=== PATIENT | female | born 1935 | race Caucasian/White ===

== ENCOUNTER 2023-06-20 10:20 | Day surgery (SDC) | payer OTHER, BC ==
[2023-06-20 10:34] VITALS: BMI 30.2
[2023-06-20] MEDS ORDERED: PROPOFOL 20 ML ONE (15:13)
[2023-06-20] MEDS ORDERED: FENTANYL CITRATE/PF 50 MCG/ML VIAL ONE (15:13)
[2023-06-20] MEDS ORDERED: ONDANSETRON 4 MG/2 ML VIAL ONE (15:13)
[2023-06-20] MEDS: ceFAZolin 2 GRAM PREMIX BAG IVPB ONE ×2 (15:39)
[2023-06-20] MEDS ORDERED: ceFAZolin SODIUM 1 GM VIAL ONE (16:14)
[2023-06-20 17:16] VITALS: RESP 18
[2023-06-20 17:47] VITALS: BP 155/66; PULSE 66; TEMP 98.6
== END 2023-06-20 17:30 | disposition home or self-care (01) ==
LOC: JASU-SURG 10:20
PROVIDERS: ATTEND Urology
PROC: 0TC78ZZ Extirpation of Matter from Left Ureter, Via Natural or Artificial Opening Endoscopic (ICD-10-PCS; principal; 2023-06-20 16:00)
PROC: 0T778DZ Dilation of Left Ureter with Intraluminal Device, Via Natural or Artificial Opening Endoscopic (ICD-10-PCS; 2023-06-20 16:00)
PROC: BT1FYZZ Fluoroscopy of Left Kidney, Ureter and Bladder using Other Contrast (ICD-10-PCS; 2023-06-20 16:00)
DX: N20.1 Calculus of ureter (principal)
CPT/HCPCS: 76000-TC-FY; 94760; C1758; C2617